=== PATIENT | male | born 1970 | race Hispanic/Latino ===

== ENCOUNTER 2023-04-24 13:52 | Emergency (ER) | payer OTHER ==
[~2023-04-24] VITALS: Ht 170.2 cm; Wt 106.1 kg
[~2023-04-24 13:52] MED LIST: ASPIRIN EC81 MG PO; Atorvastatin PO; FENOFIBRATE48 MG PO; LIPITOR20 MG PO
[2023-04-24 14:45] LABS: BASOPHILS # (AUTO) 0.1 (0.0-0.1); BASOPHILS % 0.5 % (0.0-1.0); EOSINOPHILS # (AUTO) 0.3 (0.0-0.4); EOSINOPHILS % 3.1 % (0.0-6.0); HEMATOCRIT 46.4 % (38.2-49.6); HEMOGLOBIN 14.9 g/dL (14.0-18.0); LYMPHOCYTES # (AUTO) 2.7 (1.0-3.2); LYMPHOCYTES % 25.6 % (18.0-39.1); MEAN CORPUSCULAR HGB CONC 32.1 g/dL (31-35); MEAN CORPUSCULAR VOLUME 96.7 fL (81-99); MONOCYTES # (AUTO) 0.8 (0.2-0.8); MONOCYTES % 7.2 % (4.4-11.3); NEUTROPHILS # (AUTO) 6.6 (2.1-6.9); NEUTROPHILS % 63.1 % (38.7-80.0); PLATELET COUNT 184 x10e3/uL (140-360); RED CELL DISTRIBUTION WIDTH 12.6 % (11.7-14.4); WHITE BLOOD COUNT 10.48 x10e3/uL (4.8-10.8)
[2023-04-24 14:50] VITALS: O2SAT 95
[2023-04-24] MEDS: KETOROLAC TROMETHAMINE 30 MG/ML VIAL IV STA (14:53)
[2023-04-24] MEDS: SODIUM CHLORIDE FLUSH 10 ML SYR IV PRN (14:55)
[2023-04-24 15:01] LABS: ALANINE AMINOTRANSFERASE 26 IU/L (0-55); ALBUMIN 3.8 g/dL (3.5-5.0); ALKALINE PHOSPHATASE 69 IU/L (40-150); ANION GAP 14.6 mmol/L (8-16); BILIRUBIN,TOTAL 0.9 mg/dL (0.2-1.2); BLOOD UREA NITROGEN 14 mg/dL (7-26); BUN/CREATININE RATIO 14 (6-25); CALCIUM 9.3 mg/dL (8.4-10.2); CARBON DIOXIDE 24 mmol/L (22-29); CHLORIDE 107 mmol/L (98-107); CREATININE, SERUM 1.02 mg/dL (0.72-1.25); EST GLOMERULAR FILTRATION RATE 87 ML/MIN (>=60); GLUCOSE 100 mg/dL (74-118); POTASSIUM 3.6 mmol/L (3.5-5.1); SODIUM 142 mmol/L (136-145); TOTAL PROTEIN 7.7 g/dL (6.5-8.1)
[2023-04-24 15:08] LABS: TROPONIN I < 0.001 ng/mL (0-0.300)
[2023-04-24] MEDS ORDERED: IOPAMIDOL 370 MG/ML 100 ML INFUS..BTL INJ ONE (15:20)
[2023-04-24] MEDS ORDERED: BENZONATATE100 MG PO (18:06)
== END 2023-04-24 18:35 | disposition home or self-care (01) ==
LOC: ER 14:01
DX: R05.9 Cough, unspecified (principal); R07.9 Chest pain, unspecified; B34.9 Viral infection, unspecified; I10 Essential (primary) hypertension; E78.5 Hyperlipidemia, unspecified; E03.9 Hypothyroidism, unspecified; Z11.52 Encounter for screening for COVID-19
CPT/HCPCS: 36415; 71046; 71260; 80053; 84484; 85025; 85379; 87400; 93005; 94760; 99284; J1885; Q9967; U0002